=== PATIENT | female | born 1970 | race Caucasian/White ===

== ENCOUNTER 2018-12-16 20:43 | Emergency (ER) | payer OTHER ==
[~2018-12-16] VITALS: Ht 157.5 cm; Wt 72.6 kg
[2018-12-16 21:23] LABS: ABSOLUTE EOSINOPHILS 0.1 thou/uL (0.0-0.7); ABSOLUTE LYMPHOCYTES 2.5 thou/uL (0.8-5.3); ABSOLUTE MONOCYTES 0.7 thou/uL (0.0-1.2); ABSOLUTE NEUTROPHILS 5.2 thou/uL (1.6-8.1); BASOPHILS 0.4 %; EOSINOPHILS 1.7 %; HEMATOCRIT 33.8 % (37.0-47.0); HEMOGLOBIN 11.3 gm/dL (12.0-15.0); LYMPHOCYTES 28.9 %; MCH 27.6 pg (26.0-34.0); MCHC 33.4 g/dL (28.0-37.0); MCV 82.7 fL (80.0-100.0); MONOCYTES 7.7 %; MPV 7.6 fl. (7.2-11.1); NUCLEATED RBCS 0 /100WBC; PLATELET COUNT* 319 thou/uL (150-400); POLYS 61.3 %; RBC 4.09 mil/uL (4.20-5.00); RDW-CV 14.6 % (10.5-14.5); WBC 8.5 thou/uL (4.0-11.0)
[2018-12-16 21:26] LABS: CALCIUM 9.3 mg/dL (8.5-10.1); CREATININE 0.8 mg/dL (0.6-1.3); POTASSIUM 3.6 mmol/L (3.5-5.1)
[2018-12-16 21:28] LABS: PROTIME 9.9 Seconds (9.20-11.50)
[2018-12-16 23:45] VITALS: BP 149/75
== END 2018-12-16 23:46 | disposition home or self-care (01) ==
LOC: M.ERS 20:43
PROVIDERS: Nurse Practitioner Family
DX: G89.18 Other acute postprocedural pain (principal); M79.604 Pain in right leg